=== PATIENT | male | born 1950 | race Caucasian/White ===

== ENCOUNTER 2016-12-26 18:01 | Emergency (ER) | payer OTHER ==
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
[2016-12-26] MEDS ORDERED: Bacitracin Oint 1 GM U/D Packet TOP ONE (18:37)
[2016-12-26 18:52] VITALS: BP 150/72
== END 2016-12-26 18:51 | disposition home or self-care (01) ==
LOC: MW.ED 18:01
DX: S80.11XA Contusion of right lower leg, initial encounter (principal); S80.811A Abrasion, right lower leg, initial encounter; S50.312A Abrasion of left elbow, initial encounter; I10 Essential (primary) hypertension; F41.9 Anxiety disorder, unspecified; E11.40 Type 2 diabetes mellitus with diabetic neuropathy, unspecified; F32.9 Major depressive disorder, single episode, unspecified; E66.9 Obesity, unspecified; Z88.5 Allergy status to narcotic agent; Z79.899 Other long term (current) drug therapy; Z79.82 Long term (current) use of aspirin; Z95.1 Presence of aortocoronary bypass graft; W01.0XXA Fall on same level from slipping, tripping and stumbling without subsequent striking against object, initial encounter
CPT/HCPCS: 99283

== ENCOUNTER 2016-12-26 20:53 | Inpatient (IN) | payer OTHER ==
[2016-12-26] MEDS ORDERED: Sodium Chloride 0.9% 10 ML Syringe FLUSH PRN (21:10)
--- NOTE | 2016-12-26 21:42 | EDM.PDOC ---
<Jina Fuentes - Last Filed: 12/26/16 21:53> ED HPI GENERAL MEDICAL PROBLEM - General Chief Complaint: Neuro Symptoms/Deficits Stated Complaint: DIZZY/WEAKNESS LEGS Time Seen by Provider: 12/26/16 20:55 Source of Information: Reports: Patient History Limitations: Reports: No Limitations - History of Present Illness INITIAL COMMENTS - FREE TEXT/NARRATIVE: HISTORY AND PHYSICAL: History of present illness: [Patient comes to the emergency room complaining of weakness. He was seen in the ER earlier today after stating that he tripped and fell hurting his knee. He denied any weakness in any other complaints and concerns at that time. He now comes to the ER, claiming weakness to his legs for the past month. Since he left the ER earlier today he feels as though his legs could buckle at any moment and give out on him. He admits to previous stroke in 2013. No focal point weakness, headache, blurred vision or double vision. He denies any chest pain shortness of breath and difficulty breathing. Has no pain anywhere. No falls other than what he experienced earlier today when he reported that he tripped.] Review of systems: As per history of present illness and below otherwise all systems reviewed and negative. Past medical history: As per history of present illness and as reviewed below otherwise noncontributory. Surgical history: As per history of present illness and as reviewed below otherwise noncontributory. Social history: No reported history of drug or alcohol abuse. Family history: As per history of present illness and as reviewed below otherwise noncontributory. Physical exam: HEENT: Atraumatic, normocephalic. PERRLA. EOMI. Speech is clear, he answers questions appropriately. Oral mucous membranes are pink and moist. Neck supple no lymphadenopathy. Lungs: Clear to auscultation, breath sounds equal bilaterally. Heart: S1S2, regular rate and rhythm. Abdomen: Sounds are normoactive. Soft, nondistended, nontender. Pelvis: Stable nontender. Genitourinary: Deferred. Rectal: Deferred. Extremities: Atraumatic, negative for cords or calf pain. no cyanosis or edema to feet or lower legs. Neurovascular unremarkable. Neuro: Strength is 5 out of 5 to upper and lower extremities and equal bilaterally. No pronator drift. Hand front desk officer strength 2+ and equal bilaterally. Awake, alert, oriented. Cranial nerves II through XII unremarkable. Cerebellum unremarkable. Motor and sensory unremarkable throughout. Exam nonfocal. Face is symmetrical. No slurred speech or facial droop. Diagnostics: [CBC, CMP, UA, lactic acid, head CT without contrast, chest x-ray, EKG, troponin , INR/PT/PTT] Therapeutics: [Normal saline at 100 mLs/hour] Impression: [] Plan: [Head CT shows no acute findings. CBC and CMP are unremarkable. Lactic acid mildly elevated at 2.2.] Definitive disposition and diagnosis as appropriate pending reevaluation and review of above. right leg Pain Score (Numeric/FACES): 5 - Related Data Allergies Allergy/AdvReac Type Severity Reaction Status Date / Time codeine Allergy Itching Verified 12/26/16 21:26 diazepam [From Valium] Allergy Other Verified 12/26/16 21:26 Home Meds: Home Meds Atenolol 50 mg PO DAILY 03/29/14 [History] Clopidogrel [Plavix] 75 mg PO DAILY 03/29/14 [History] FA/Lycopene/Lut/MV,Ca,Iron,Min [Centrum] 1 tab PO DAILY 03/29/14 [History] Losartan/Hydrochlorothiazide [Losartan-HCTZ 100-25 MG] 1 tab PO DAILY 03/29/14 [ History] cloNIDine [Catapres] 0.1 mg PO DAILY 03/29/14 [History] Aspirin [Halfprin] 81 mg PO DAILY 08/04/14 [History] Clopidogrel Bisulfate [Clopidogrel] 75 mg PO DAILY 10/04/15 [History] FLUoxetine HCl [Fluoxetine] 20 mg PO DAILY 10/04/15 [History] Gabapentin [Neurontin] 100 mg PO BEDTIME 10/04/15 [History] Glimepiride [Amaryl] 2 mg PO BEDTIME 10/04/15 [History] amLODIPine [Norvasc] 5 mg PO DAILY 10/04/15 [History] Past Medical History - Past Health History Medical/Surgical History: Denies Medical/Surgical History HEENT History: Reports: None Other HEENT History: wears corrective glasses Cardiovascular History: Reports: Blood Clots/VTE/DVT, Hypertension Respiratory History: Reports: None Gastrointestinal History: Reports: None Genitourinary History: Reports: None Musculoskeletal History: Reports: None Neurological History: Reports: Brain Injury, Neuropathy, Diabetic, Neuropathy, Peripheral, Speech Problems, TIA Psychiatric History: Reports: Anxiety, Depression Endocrine/Metabolic History: Reports: Diabetes, Type II, Obesity/BMI 30+ Hematologic History: Reports: None Immunologic History: Reports: None Oncologic (Cancer) History: Reports: None Dermatologic History: Reports: None - Infectious Disease History Infectious Disease History: Reports: None - Past Surgical History Head Surgeries/Procedures: Reports: Craniotomy Cardiovascular Surgical History: Reports: Coronary Artery Bypass Musculoskeletal Surgical History: Reports: None Oncologic Surgical History: Reports: None Dermatological Surgical History: Reports: None Social & Family History - Family History Family Medical History: Noncontributory HEENT: Reports: None Cardiac: Reports: None Respiratory: Reports: None GI: Reports: None - Tobacco Use Smoking Status *Q: Never Smoker Second Hand Smoke Exposure: No - Alcohol Use Days Per Week of Alcohol Use: 0 - Recreational Drug Use Recreational Drug Use: No ED ROS GENERAL - Review of Systems Review Of Systems: ROS reveals no pertinent complaints other than HPI. ED EXAM, NEURO - Physical Exam Exam: See Below Course - Vital Signs Last Recorded V/S: Last Vital Signs Temp 36.1 C 12/26/16 21:05 Pulse 71 12/26/16 21:05 Resp 18 12/26/16 21:05 BP 160/89 H 12/26/16 21:05 Pulse Ox 95 12/26/16 21:05 - Orders/Labs/Meds Orders: Active Orders 24 hr Category Date Time Status Blood Glucose Check, Bedside [RC] ONETIME Care 12/26/16 21:09 Active EKG Documentation Completion [RC] STAT Care 12/26/16 21:06 Active Chest 2V [CR] Stat Exams 12/26/16 21:07 Taken Head wo Cont [CT] Stat Exams 12/26/16 21:07 Taken UA W/MICROSCOPIC [URIN] Stat Lab 12/26/16 21:07 Uncollected Sodium Chloride 0.9% [Normal Saline] 1,000 ml Med 12/26/16 22:03 Active IV STAT Sodium Chloride 0.9% [Saline Flush] Med 12/26/16 21:10 Active 10 ml FLUSH ASDIRECTED PRN Sodium Chloride 0.9% [Saline Flush] Med 12/26/16 21:10 Active 2.5 ml FLUSH ASDIRECTED PRN Saline Lock Insert [OM.PC] Stat Oth 12/26/16 21:10 Ordered Medication Orders Sodium Chloride (Normal Saline) 1,000 mls @ 100 mls/hr IV STAT ONE Stop: 12/27/16 08:02 Last Admin: 12/26/16 22:36 Dose: 100 mls/hr Sodium Chloride (Saline Flush) 10 ml FLUSH ASDIRECTED PRN PRN Reason: Keep Vein Open Sodium Chloride (Saline Flush) 2.5 ml FLUSH ASDIRECTED PRN PRN Reason: Keep Vein Open Last Admin: 12/26/16 22:37 Dose: 2.5 ml Admin: 12/26/16 22:36 Dose: 2.5 ml Labs: Laboratory Tests 12/26/16 12/26/16 12/26/16 Range/Units 21:06 21:06 21:06 WBC 10.35 (4.0-11.0) K/uL RBC 5.32 (4.50-5.90) M/uL Hgb 15.9 (13.0-17.0) g/dL Hct 44.2 (38.0-50.0) % MCV 83.1 (80.0-98.0) fL MCH 29.9 (27.0-32.0) pg MCHC 36.0 (31.0-37.0) g/dL RDW Std Deviation 40.9 (28.0-62.0) fl RDW Coeff of Shar 14 (11.0-15.0) % Plt Count 173 (150-400) K/uL MPV 10.00 (7.40-12.00) fL Neut % (Auto) 74.9 (48.0-80.0) % Lymph % (Auto) 14.5 L (16.0-40.0) % Wilcox % (Auto) 9.3 (0.0-15.0) % Eos % (Auto) 1.0 (0.0-7.0) % Baso % (Auto) 0.3 (0.0-1.5) % Neut # (Auto) 7.8 H (1.4-5.7) K/uL Lymph # (Auto) 1.5 (0.6-2.4) K/uL Wilcox # (Auto) 1.0 H (0.0-0.8) K/uL Eos # (Auto) 0.1 (0.0-0.7) K/uL Baso # (Auto) 0.0 (0.0-0.1) K/uL Nucleated RBC % 0.0 /100WBC Nucleated RBCs # 0 K/uL INR 1.02 (0.86-1.11) Lactate 2.2 H (0.20-2.00) mmol/L Sodium (136-146) mmol/L Potassium (3.5-5.1) mmol/L Chloride (98-110) mmol/L Carbon Dioxide (21-31) mmol/L BUN (6.0-23.0) mg/dL Creatinine (0.6-1.5) mg/dL Est Cr Clr Drug Dosing mL/min Estimated GFR (MDRD) ml/min Glucose (60-110) mg/dL Calcium (8.8-10.8) mg/dL Total Bilirubin (0.1-1.5) mg/dL AST (5-40) IU/L ALT (8-54) IU/L Alkaline Phosphatase (40-150) Troponin I (0.0-0.29) NG/ML Total Protein (6.0-8.0) g/dL Albumin (3.4-4.8) g/dL Globulin (2.0-3.5) g/dL Albumin/Globulin Ratio (1.3-2.8) 12/26/16 12/26/16 Range/Units 21:06 21:06 WBC (4.0-11.0) K/uL RBC (4.50-5.90) M/uL Hgb (13.0-17.0) g/dL Hct (38.0-50.0) % MCV (80.0-98.0) fL MCH (27.0-32.0) pg MCHC (31.0-37.0) g/dL RDW Std Deviation (28.0-62.0) fl RDW Coeff of Shar (11.0-15.0) % Plt Count (150-400) K/uL MPV (7.40-12.00) fL Neut % (Auto) (48.0-80.0) % Lymph % (Auto) (16.0-40.0) % Wilcox % (Auto) (0.0-15.0) % Eos % (Auto) (0.0-7.0) % Baso % (Auto) (0.0-1.5) % Neut # (Auto) (1.4-5.7) K/uL Lymph # (Auto) (0.6-2.4) K/uL Wilcox # (Auto) (0.0-0.8) K/uL Eos # (Auto) (0.0-0.7) K/uL Baso # (Auto) (0.0-0.1) K/uL Nucleated RBC % /100WBC Nucleated RBCs # K/uL INR (0.86-1.11) Lactate (0.20-2.00) mmol/L Sodium 139 (136-146) mmol/L Potassium 3.7 (3.5-5.1) mmol/L Chloride 105 (98-110) mmol/L Carbon Dioxide 21 (21-31) mmol/L BUN 17 (6.0-23.0) mg/dL Creatinine 1.0 (0.6-1.5) mg/dL Est Cr Clr Drug Dosing 73.40 mL/min Estimated GFR (MDRD) > 60.0 ml/min Glucose 186 H (60-110) mg/dL Calcium 9.5 (8.8-10.8) mg/dL Total Bilirubin 0.6 (0.1-1.5) mg/dL AST 33 (5-40) IU/L ALT 56 H (8-54) IU/L Alkaline Phosphatase 88 (40-150) Troponin I < 0.10 (0.0-0.29) NG/ML Total Protein 7.8 (6.0-8.0) g/dL Albumin 4.4 (3.4-4.8) g/dL Globulin 3.4 (2.0-3.5) g/dL Albumin/Globulin Ratio 1.3 (1.3-2.8) Meds: Medications Generic Name Dose Route Start Last Admin Trade Name Freq PRN Reason Stop Dose Admin Sodium Chloride 1,000 mls @ 100 mls/hr 12/26/16 22:03 12/26/16 22:36 Normal Saline IV 12/27/16 08:02 100 mls/hr STAT ONE Administration Sodium Chloride 10 ml 12/26/16 21:10 Saline Flush FLUSH ASDIRECTED PRN Keep Vein Open Sodium Chloride 2.5 ml 12/26/16 21:10 12/26/16 22:37 Saline Flush FLUSH 2.5 ml ASDIRECTED PRN Administration Keep Vein Open Departure - Departure Disposition: Refer to Observation Clinical Impression: Generalized weakness - Discharge Information Referrals: PCP,None [Primary Care Provider] - Forms: ED Department Discharge <Rose Marie Wild - Last Filed: 12/26/16 22:44> ED HPI GENERAL MEDICAL PROBLEM - History of Present Illness INITIAL COMMENTS - FREE TEXT/NARRATIVE: NIHSS=0 per nursing and neuro exam is as above. All testing results were reviewed with the patient and he is agreeable to stay due to his concerns and due to the lack of clarity regarding his symptomatology. UA has not been collected at this time and we will seek to get that and the hospitalist will follow that up. Dr. Solis was aware of this patient at 1042 and agrees to observation admission to telemetry for generalized weakness etiology unclear. Impression: Generalized weakness with history of TIA/CVA etiology unclear ED ROS GENERAL - Review of Systems Review Of Systems: ROS reveals no pertinent complaints other than HPI. ED EXAM, NEURO - Physical Exam Exam: See Below (See dictation) Departure - Departure Time of Disposition: 22:43 Condition: Good
[2016-12-26 21:50] LABS: CHLORIDE,CL 105 mmol/L (98-110); SODIUM,NA 139 mmol/L (136-146)
[2016-12-26] MEDS ORDERED: Sodium Chloride 0.9% 1,000 ML IV ONE (22:03)
[2016-12-26] MEDS: Sodium Chloride 0.9% 2.5 ML Syringe FLUSH PRN ×2 (22:36→22:37)
[2016-12-26] MEDS ORDERED: Aspirin 325 MG Tab PO ONE (23:14)
[2016-12-26] MEDS ORDERED: Temazepam 15 MG Cap PO PRN (23:34)
[2016-12-26] MEDS ORDERED: Acetaminophen 325 MG Tab PO PRN (23:34)
[2016-12-26] MEDS ORDERED: Ondansetron 4 MG Tab.DIS PO PRN (23:34)
[2016-12-26] MEDS ORDERED: Bisacodyl 5 MG Tab PO PRN (23:34)
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
[2016-12-26] MEDS ORDERED: traMADol 50 MG Tab PO PRN (23:40)
[2016-12-27] MEDS: Insulin Aspart 100 Units/ML 3 ML Pen SUBCUT SCH ×4 (00:29→17:00)
[2016-12-27 06:27] LABS: CHLORIDE,CL 108 mmol/L (98-110); SODIUM,NA 138 mmol/L (136-146)
[2016-12-27] MEDS ORDERED: Aspirin 81 MG Tab.Chew PO ONE (08:00)
[2016-12-27] MEDS ORDERED: Docusate Sodium 100 MG Cap PO SCH (09:00)
[2016-12-27] MEDS ORDERED: Hydrochlorothiazide/Losartan 12.5-50 mg Tab PO SCH (09:00)
[2016-12-27] MEDS ORDERED: Aspirin 81 MG Tab.EC PO SCH (09:00)
[2016-12-27] MEDS ORDERED: cloNIDine 0.1 MG Tab PO SCH (09:00)
[2016-12-27] MEDS ORDERED: amLODIPine 5 MG Tab PO SCH (09:00)
[2016-12-27] MEDS ORDERED: Enoxaparin 40 MG/0.4 ML Syringe SUBCUT SCH (09:00)
[2016-12-27] MEDS ORDERED: Clopidogrel 75 MG Tab PO SCH (09:00)
[2016-12-27] MEDS ORDERED: Iopamidol 755 MG/ML 500 ML Multipack Bottle IVPUSH STA (09:28)
--- NOTE | 2016-12-27 09:44 | CT ---
EXAMINATION: CTA head and neck HISTORY: Stroke COMPARISON: CT head from the same day TECHNIQUE: Axial CT images obtained through the head and neck following the administration of 100 mL of Isovue-370 in the left arm. Coronal and sagittal reconstructions obtained. FINDINGS: Mild atheromatous changes noted within the distal internal carotid arteries bilaterally, ri ght greater than left. The middle cerebral and anterior cerebral arteries appear normal. The anterior cerebral arteries are supplied predominantly by the left system. There is a origin of the left posterior cerebral artery. Mild atheromatous changes noted within the basilar artery. The left verte bral artery is dominant. No aneurysm or significant stricture. No mass, mass effect, or midline shift . No extra-axial fluid collections. The orbits and globes are symmetric. The visualized paranasal sin uses are clear. There is a normal three-vessel origin on the cart. Motion artifact and scatter artifact obscures eval uation of the common carotid and vertebral artery origins. The left vertebral artery is dominant. The bulbs and proximal internal carotid arteries appear grossly normal. No bulky cervical lymphadenopath y. The lung apices are clear. IMPRESSION: 1. Mild atheromatous changes without significant stenosis noted within the intra and extra cranial ar terial circulation. 2. No aneurysm identified. 3. No acute findings noted.
--- NOTE | 2016-12-27 13:40 | MR ---
EXAMINATION: MRI of the brain with and without contrast. TECHNIQUE: Multiplanar and multisequence imaging of the brain without and following the administratio n of 20 mL MultiHance. HISTORY: Stroke. FINDINGS: Cerebral hemispheres and the deep nuclei are without hemorrhage, mass, edema, or enhancement. There i s mild generalized atrophy. There is periventricular and right basal ganglial foci of abnormal diffus ion consistent with small infarcts. Periventricular FLAIR signal abnormalities are also noted consist ent with small vessel ischemic changes. No extraaxial collections or hemorrhage. The ventricular system is of normal size and configuration w ithout hydrocephalus. The brainstem and cerebellum are without hemorrhage, mass, edema, gliosis, enha ncement or atrophy. The carotid and basilar artery flow voids are intact. The otomastoid airspaces are clear. No environmental engineering intern al auditory canal or cerebellopontine angle masses or enhancement. The paranasal sinuses are clear. Th globes, optic nerves, orbital apices, optic chiasm, optic tracts, and visual cortices are unrema rkable. Pituitary and sella turcica are unremarkable. No meningeal enhancement. The craniocervical junction is unremarkable without Chiari malformation. No siderosis or evidence of vascular malformation. Th e calvarium is intact. IMPRESSION: 1. Small Right posterior paraventricular and right basal ganglia infarcts. 2. Mild generalized atrophy and small vessel ischemic changes.
--- NOTE | 2016-12-27 17:08 | PCM.DCSUM1 ---
Discharge Summary - Hospital Course Brief History: he was admitted with recent slurred speech and left facial droop. It was unclear if this was new or old. The patient said it was from a prior stroke but a friend of the patient opined that the speech was more slurred than previously. - Discharge Data Discharge Date: 12/27/16 Discharge Disposition: DC/Tfer to Acute Hospital 02 Condition: Fair - Discharge Diagnosis/Problem(s) (1) Stroke SNOMED Code(s): 165645773 ICD Code: I63.9 - CEREBRAL INFARCTION, UNSPECIFIED Status: Acute Current Visit: Yes - Patient Summary/Data Hospital Course: He was admitted on telemetry. His blood sugars were monitored. He has a known history of DM. about 1645 on 12/27/2016 he developed sudden aphasia and complete LUE paralysis. He has some weak movement of the LLE. MRA of the head and neck showed diffuse atheromatous disease not hemodynamically significant. MRI of the brain showed right basal ganglia and periventricular infarct. A repeat non contrasted head CT is ordered. Blood pressure is 138/87 pulse 78 afebrile ; poc glucose 112 . I spoke with his daughter Sandhya Dorsey [phone] and advised regarding the situation and advised that I recommended transfer. I spoke with Dr Porter regarding care. She agrees with transfer. He is not a candidate for thrombolysis as he has had a recent stroke Assess: history of HTN history of prior stroke history of stroke yesterday acute stroke Plan: seek transfer CT head non contrast supportive care. I spoke with DR Luis Fernando Garcia who agrees to accept at [facility]. Luis Fernando Solis MD - Discharge Plan Home Medications: Home Meds Clopidogrel [Plavix] 75 mg PO DAILY 03/29/14 [History] Losartan/Hydrochlorothiazide [Losartan-HCTZ 100-25 MG] 1 tab PO DAILY 03/29/14 [ History] cloNIDine [Catapres] 0.1 mg PO DAILY 03/29/14 [History] Aspirin [Halfprin] 81 mg PO DAILY 08/04/14 [History] Gabapentin [Neurontin] 100 mg PO BEDTIME 10/04/15 [History] Glimepiride [Amaryl] 2 mg PO BEDTIME 10/04/15 [History] amLODIPine [Norvasc] 5 mg PO DAILY 10/04/15 [History] traMADol [Ultram] 50 mg PO TID 12/26/16 [History] Forms: ED Department Discharge Referrals: PCP,None [Primary Care Provider] - - Patient Data Vitals - Most Recent: Last Vital Signs Temp 96.4 F 12/27/16 16:00 Pulse 75 12/27/16 16:00 Resp 20 12/27/16 16:00 BP 138/87 12/27/16 16:00 Pulse Ox 94 L 12/27/16 16:00 Weight - Most Recent: 102 kg I&O - Last 24 hours: Intake & Output 12/27/16 12/27/16 12/27/16 06:59 14:59 22:59 Intake Total 0 830 Output Total 0 Balance 0 830 Lab Results - Last 24 hrs: Laboratory Results - last 24 hr 12/27/16 12/27/16 12/27/16 Range/Units 00:29 05:35 05:35 WBC 7.50 (4.0-11.0) K/uL RBC 4.92 (4.50-5.90) M/uL Hgb 14.4 (13.0-17.0) g/dL Hct 41.0 (38.0-50.0) % MCV 83.3 (80.0-98.0) fL MCH 29.3 (27.0-32.0) pg MCHC 35.1 (31.0-37.0) g/dL RDW Std Deviation 41.4 (28.0-62.0) fl RDW Coeff of Shar 14 (11.0-15.0) % Plt Count 148 L (150-400) K/uL MPV 10.00 (7.40-12.00) fL Neut % (Auto) 63.6 (48.0-80.0) % Lymph % (Auto) 21.7 (16.0-40.0) % [place] % (Auto) 12.1 (0.0-15.0) % Eos % (Auto) 2.3 (0.0-7.0) % Baso % (Auto) 0.3 (0.0-1.5) % Neut # (Auto) 4.8 (1.4-5.7) K/uL Lymph # (Auto) 1.6 (0.6-2.4) K/uL [place] # (Auto) 0.9 H (0.0-0.8) K/uL Eos # (Auto) 0.2 (0.0-0.7) K/uL Baso # (Auto) 0.0 (0.0-0.1) K/uL Nucleated RBC % 0.0 /100WBC Nucleated RBCs # 0 K/uL Lactate (0.20-2.00) mmol/L Sodium 138 (136-146) mmol/L Potassium 3.8 (3.5-5.1) mmol/L Chloride 108 (98-110) mmol/L Carbon Dioxide 21 (21-31) mmol/L BUN 15 (6.0-23.0) mg/dL Creatinine 0.8 (0.6-1.5) mg/dL Est Cr Clr Drug Dosing 91.75 mL/min Estimated GFR (MDRD) > 60.0 ml/min Glucose 143 H (60-110) mg/dL POC Glucose 140 H (60-110) mg/dL Calcium 8.5 L (8.8-10.8) mg/dL Magnesium 1.7 (1.5-2.3) mEq/L Total Bilirubin 0.8 (0.1-1.5) mg/dL AST 26 (5-40) IU/L ALT 46 (8-54) IU/L Alkaline Phosphatase 76 (40-150) Lactate Dehydrogenase Total Protein 6.6 (6.0-8.0) g/dL Albumin 3.8 (3.4-4.8) g/dL Globulin 2.8 (2.0-3.5) g/dL Albumin/Globulin Ratio 1.4 (1.3-2.8) Urine Color Urine Appearance Urine pH (5.0-8.0) Ur Specific [place] (1.001-1.035) Urine Protein (NEGATIVE) mg/dL Urine Glucose (UA) (NEGATIVE) mg/dL Urine Ketones (NEGATIVE) mg/dL Urine Occult Blood (NEGATIVE) Urine Nitrite (NEGATIVE) Urine Bilirubin (NEGATIVE) Urine Urobilinogen (<2.0) EU/dL Ur Leukocyte Esterase (NEGATIVE) Urine RBC (0-2/HPF) Urine WBC (0-5/HPF) Ur Epithelial Cells (NONE-FEW) Urine Bacteria (NEGATIVE) Urine Mucus (NONE-MOD) 09/18/17 09/18/17 09/18/17 Range/Units 05:35 06:07 06:55 WBC (4.0-11.0) K/uL RBC (4.50-5.90) M/uL Hgb (13.0-17.0) g/dL Hct (38.0-50.0) % MCV (80.0-98.0) fL MCH (27.0-32.0) pg MCHC (31.0-37.0) g/dL RDW Std Deviation (28.0-62.0) fl RDW Coeff of Shar (11.0-15.0) % Plt Count (150-400) K/uL MPV (7.40-12.00) fL Neut % (Auto) (48.0-80.0) % Lymph % (Auto) (16.0-40.0) % [place] % (Auto) (0.0-15.0) % Eos % (Auto) (0.0-7.0) % Baso % (Auto) (0.0-1.5) % Neut # (Auto) (1.4-5.7) K/uL Lymph # (Auto) (0.6-2.4) K/uL [place] # (Auto) (0.0-0.8) K/uL Eos # (Auto) (0.0-0.7) K/uL Baso # (Auto) (0.0-0.1) K/uL Nucleated RBC % /100WBC Nucleated RBCs # K/uL Lactate 1.6 (0.20-2.00) mmol/L Sodium (136-146) mmol/L Potassium (3.5-5.1) mmol/L Chloride (98-110) mmol/L Carbon Dioxide (21-31) mmol/L BUN (6.0-23.0) mg/dL Creatinine (0.6-1.5) mg/dL Est Cr Clr Drug Dosing mL/min Estimated GFR (MDRD) ml/min Glucose (60-110) mg/dL POC Glucose 127 H (60-110) mg/dL Calcium (8.8-10.8) mg/dL Magnesium (1.5-2.3) mEq/L Total Bilirubin (0.1-1.5) mg/dL AST (5-40) IU/L ALT (8-54) IU/L Alkaline Phosphatase (40-150) Lactate Dehydrogenase Cancelled Total Protein (6.0-8.0) g/dL Albumin (3.4-4.8) g/dL Globulin (2.0-3.5) g/dL Albumin/Globulin Ratio (1.3-2.8) Urine Color Urine Appearance Urine pH (5.0-8.0) Ur Specific [place] (1.001-1.035) Urine Protein (NEGATIVE) mg/dL Urine Glucose (UA) (NEGATIVE) mg/dL Urine Ketones (NEGATIVE) mg/dL Urine Occult Blood (NEGATIVE) Urine Nitrite (NEGATIVE) Urine Bilirubin (NEGATIVE) Urine Urobilinogen (<2.0) EU/dL Ur Leukocyte Esterase (NEGATIVE) Urine RBC (0-2/HPF) Urine WBC (0-5/HPF) Ur Epithelial Cells (NONE-FEW) Urine Bacteria (NEGATIVE) Urine Mucus (NONE-MOD) 12/27/16 12/27/16 12/27/16 Range/Units 09:30 11:56 16:23 WBC (4.0-11.0) K/uL RBC (4.50-5.90) M/uL Hgb (13.0-17.0) g/dL Hct (38.0-50.0) % MCV (80.0-98.0) fL MCH (27.0-32.0) pg MCHC (31.0-37.0) g/dL RDW Std Deviation (28.0-62.0) fl RDW Coeff of Shar (11.0-15.0) % Plt Count (150-400) K/uL MPV (7.40-12.00) fL Neut % (Auto) (48.0-80.0) % Lymph % (Auto) (16.0-40.0) % [place] % (Auto) (0.0-15.0) % Eos % (Auto) (0.0-7.0) % Baso % (Auto) (0.0-1.5) % Neut # (Auto) (1.4-5.7) K/uL Lymph # (Auto) (0.6-2.4) K/uL [place] # (Auto) (0.0-0.8) K/uL Eos # (Auto) (0.0-0.7) K/uL Baso # (Auto) (0.0-0.1) K/uL Nucleated RBC % /100WBC Nucleated RBCs # K/uL Lactate (0.20-2.00) mmol/L Sodium (136-146) mmol/L Potassium (3.5-5.1) mmol/L Chloride (98-110) mmol/L Carbon Dioxide (21-31) mmol/L BUN (6.0-23.0) mg/dL Creatinine (0.6-1.5) mg/dL Est Cr Clr Drug Dosing mL/min Estimated GFR (MDRD) ml/min Glucose (60-110) mg/dL POC Glucose 140 H 158 H (60-110) mg/dL Calcium (8.8-10.8) mg/dL Magnesium (1.5-2.3) mEq/L Total Bilirubin (0.1-1.5) mg/dL AST (5-40) IU/L ALT (8-54) IU/L Alkaline Phosphatase (40-150) Lactate Dehydrogenase Total Protein (6.0-8.0) g/dL Albumin (3.4-4.8) g/dL Globulin (2.0-3.5) g/dL Albumin/Globulin Ratio (1.3-2.8) Urine Color YELLOW Urine Appearance CLEAR Urine pH 6.0 (5.0-8.0) Ur Specific [place] 1.020 (1.001-1.035) Urine Protein NEGATIVE (NEGATIVE) mg/dL Urine Glucose (UA) NEGATIVE (NEGATIVE) mg/dL Urine Ketones NEGATIVE (NEGATIVE) mg/dL Urine Occult Blood MODERATE (NEGATIVE) Urine Nitrite NEGATIVE (NEGATIVE) Urine Bilirubin NEGATIVE (NEGATIVE) Urine Urobilinogen 0.2 (<2.0) EU/dL Ur Leukocyte Esterase NEGATIVE (NEGATIVE) Urine RBC 8-10 (0-2/HPF) Urine WBC 0-1 (0-5/HPF) Ur Epithelial Cells RARE (NONE-FEW) Urine Bacteria RARE (NEGATIVE) Urine Mucus LIGHT (NONE-MOD) Med Orders - Current: Current Medications Acetaminophen (Tylenol) 650 mg PO Q4H PRN PRN Reason: Pain (Mild 1-3)/fever Last Admin: 12/27/16 12:12 Dose: 650 mg Amlodipine Besylate (Norvasc) 5 mg PO DAILY [facility] Last Admin: 12/27/16 10:49 Dose: 5 mg Aspirin (Halfprin) 81 mg PO DAILY [facility] Last Admin: 12/27/16 09:38 Dose: 81 mg Bisacodyl (Dulcolax) 5 mg PO DAILY PRN PRN Reason: Constipation Clonidine HCl (Catapres) 0.1 mg PO DAILY [facility] Last Admin: 12/27/16 10:49 Dose: 0.1 mg Clopidogrel Bisulfate (Plavix) 75 mg PO DAILY [facility] Last Admin: 12/27/16 09:38 Dose: 75 mg Docusate Sodium (Colace) 100 mg PO BID [facility] Last Admin: 12/27/16 09:38 Dose: 100 mg Enoxaparin Sodium (Lovenox) 40 mg SUBCUT DAILY [facility] Last Admin: 12/27/16 09:46 Dose: 40 mg Gabapentin (Neurontin) 100 mg PO BEDTIME [facility] Glimepiride (Amaryl) 2 mg PO BEDTIME [facility] HCTZ/Losartan Potassium (Hyzaar 50-12.5 Mg) 2 tab PO DAILY [facility] Last Admin: 12/27/16 10:52 Dose: 2 tab Insulin Aspart (Novolog) 0 unit SUBCUT ACBED [facility] PRN Reason: Protocol Last Admin: 12/27/16 12:00 Dose: Not Given Ondansetron HCl (Zofran Odt) 4 mg PO Q4H PRN PRN Reason: nausea, able to take PO Last Admin: 12/27/16 12:49 Dose: 4 mg Sodium Chloride (Saline Flush) 10 ml FLUSH ASDIRECTED PRN PRN Reason: Keep Vein Open Sodium Chloride (Saline Flush) 2.5 ml FLUSH ASDIRECTED PRN PRN Reason: Keep Vein Open Last Admin: 12/26/16 22:37 Dose: 2.5 ml Temazepam (Restoril) 15 mg PO BEDTIME PRN PRN Reason: Sleep Tramadol HCl (Ultram) 50 mg PO TID PRN PRN Reason: Pain Last Admin: 12/27/16 07:33 Dose: 50 mg Discontinued Medications Aspirin (Aspirin) 325 mg PO ONETIME ONE Stop: 12/26/16 23:15 Last Admin: 12/26/16 23:37 Dose: 325 mg Aspirin (Aspirin) 81 mg PO DAILY ONE Stop: 12/27/16 08:01 Sodium Chloride (Normal Saline) 1,000 mls @ 100 mls/hr IV STAT ONE Stop: 12/27/16 08:02 Last Admin: 12/26/16 22:36 Dose: 100 mls/hr Iopamidol (Isovue Multipack-370 (76%)) 100 ml IVPUSH ONETIME STA Stop: 12/27/16 09:29 Last Admin: 12/27/16 09:30 Dose: 100 ml *Q Meaningful Use (DIS) - VTE *Q VTE Criteria *Q: - Stroke *Q Stroke Criteria *Q: - AMI *Q AMI Criteria *Q:
--- NOTE | 2016-12-27 17:16 | CT ---
EXAM DATE: 12/26/16 PATIENT'S AGE: 66 Patient: NAVEED MAURO Facility: [place], [place] Site . Site : 1950 Study: CT Head [id number]/17/2017 9:47:11 PM Ordering Physician: Doctor Sotelo Final Report: INDICATION: PAIN/WEAKNESS FINDINGS: No intracranial hemorrhage, mass effect, or evidence for acute infarction. Patchy low attenuation changes in the white matter of both cerebral hemispheres consistent with chronic small vessel ischemic changes. Age- appropriate cerebral and cerebellar volume loss. Intracranial vascular calcifications. IMPRESSION: 1. No acute findings. 2. Chronic age-related changes. Please note that all CT scans performed at this facility use dose modulation, iterative reconstruction, and/or weight based dosing when appropriate to reduce radiation dose to as low as reasonably achievable Dictated by: Ziggy Bacon MD @ 12/26/2016 21:58:42 (Electronic Signature) Report Signed by Proxy. [facility]FFEE HOSPITALShashank
--- NOTE | 2016-12-27 17:18 | CR ---
EXAM DATE: 12/26/16 PATIENT'S AGE: 66 Patient: NAVEED MAURO Facility: [place], [place] Site . Site : 1950 Study: XRay Chest [id number] 9:48:45 PM Ordering Physician: Doctor Sotelo Final Report: INDICATIONS: Pain. Shortness of breath. TECHNIQUE: Chest 2 view. COMPARISON: Chest radiograph 05/05/2015. FINDINGS: No pneumothorax, pleural effusion or airspace consolidation. Cardiac and mediastinal contours are within normal limits. Median sternotomy changes as before. Upper abdomen and osseous structures show no acute abnormality. IMPRESSION: No evidence of acute cardiopulmonary disease. Dictated by Jean Claude Garay MD @ 12/26/2016 10:14:44 PM Dictated by: Jean Claude Garay MD @ 12/26/2016 22:14:51 (Electronic Signature) Report Signed by Proxy. MTDShashank
[2016-12-27 19:11] VITALS: BP 134/69
[2016-12-27] MEDS ORDERED: Gabapentin 100 MG Cap PO SCH (21:00)
[2016-12-27] MEDS ORDERED: Glimepiride 2 MG Tab PO SCH (21:00)
--- NOTE | 2016-12-28 11:25 | CT ---
EXAM DATE: 12/26/16 PATIENT'S AGE: 66 Patient: NAVEED MAURO Facility: [place], [place] Site . Site : 1950 Study: CT Head STROKE PROTOCOL [id number]/18/2017 5:08:41 PM Ordering Physician: Irma Gould Final Report: INDICATION: Stroke TECHNIQUE: Head CT without contrast. COMPARISON: December 26, 2016 FINDINGS: CSF spaces: Within normal limits for age. Brain parenchyma: There are nonspecific low attenuation white matter changes consistent with chronic microvascular disease. No sign of mass, hemorrhage, or midline shift. Skull base and calvarium: The visualized paranasal sinuses and mastoid air cells demonstrate no acute or significant findings. The visualized orbits are grossly unremarkable. No skull fractures. There is intracranial atherosclerosis. IMPRESSION: 1. No acute findings. 2. Nonspecific white matter disease, typical of chronic microvascular disease. 3. Consider MRI brain for further evaluation if clinically indicated. Please note that all CT scans at this facility use dose modulation, iterative reconstruction, and/or weight-based dosing when appropriate to reduce radiation dose to as low as reasonably achievable. Dictated by Sandhya Nguyen MD @ Dec 27 2016 5:13PM (Electronic Signature) Report Signed by Proxy. JOSÉ MIGUEL
== END 2016-12-27 18:00 | DRG 66 ==
LOC: MW.ED 20:53 → MW.MS 22:44 → OBSVTOIN 23:10 → MW.MS 23:10
PROVIDERS: ADMIT Family Medicine; ATTEND Family Medicine
DX: I63.9 Cerebral infarction, unspecified (principal); I10 Essential (primary) hypertension; E11.9 Type 2 diabetes mellitus without complications; F41.8 Other specified anxiety disorders; Z88.8 Allergy status to other drugs, medicaments and biological substances; Z79.899 Other long term (current) drug therapy; Z79.82 Long term (current) use of aspirin; Z86.718 Personal history of other venous thrombosis and embolism
CPT/HCPCS: 36415; 70450; 70450-26; 70496; 70496-26; 70498; 70498-26; 70553; 70553-26; 71020; 71020-26; 80053; 81001; 82962; 83605; 83735; 84484; 85025; 85610; 93005; 96360; 96361; 99283; 99284; 99285-25; A9270-GY; J1650; J7040; Q9967